=== PATIENT | female | born 2000 | race African-American/Black ===

== ENCOUNTER 2022-03-02 21:42 | Emergency (ER) | payer SELFPAY ==
[2022-03-02 21:47] VITALS: BP 139/77; PULSE 101; TEMP 100.7; BMI 26.4
[2022-03-02] MEDS ORDERED: AMOX TR/POT CLAV 875MG/125MG TABLETS (FP) PO ONE (23:18)
[2022-03-02] MEDS ORDERED: DEXAMETHASONE 4 MG TABLET (FP) PO ONE (23:20)
[2022-03-02] MEDS ORDERED: AMOX TR/POT CLAV 875MG/125MG TABLETS (FP) ONE (23:58)
[2022-03-02] MEDS ORDERED: DEXAMETHASONE 4 MG TABLET (FP) ONE (23:59)
== END 2022-03-03 00:27 | disposition home or self-care (01) ==
LOC: JERFT 21:42 → JER 21:42
DX: J03.90 Acute tonsillitis, unspecified (principal)
CPT/HCPCS: 99283-25

== ENCOUNTER 2023-06-21 22:58 | Emergency (ER) | payer SELFPAY ==
[2023-06-21 23:11] VITALS: RESP 18; BMI 37.8
[2023-06-22 01:54] LABS: EPI CELLS >36 /uL (0-25.1); HYALINE CASTS 4 /uL (0-3.1); URINE APPEARANCE TURBID; URINE BACTERIA >9,000 /uL (0-1359); URINE BILIRUBIN NEGATIVE (NEGATIVE); URINE COLOR YELLOW; URINE GLUCOSE (UA) NEGATIVE (NEGATIVE); URINE KETONE 4+ (NEGATIVE); URINE LEUK ESTERASE 3+ (NEGATIVE); URINE NITRITE POSITIVE (NEGATIVE); URINE PROTEIN 2+ (NEGATIVE); URINE UROBILINOGEN 0.2 mg/dL (0.2-1.0); URINE WBC 9645 /uL (0-25.8)
[2023-06-22] MEDS ORDERED: CEPHALEXIN MONOHYDRATE 500 MG CAPSULE (UD) PO ONE (02:13)
[2023-06-22] MEDS ORDERED: LACTATED RINGERS SOLUTION 500 ML IV ONE (03:30)
[2023-06-22 03:43] VITALS: BP 119/73; PULSE 92; TEMP 98.2
[2023-06-22] MEDS ORDERED: CEFTRIAXONE 1 GM in DEXTROSE 5%-WATER - 50 ML IVPB ONE (04:48)
[2023-06-22 12:05] LABS: URINE RBC 276.5 /uL (0-23.9)
== END 2023-06-22 05:50 | disposition home or self-care (01) ==
LOC: JER 22:58
PROC: 3E033GC Introduction of Other Therapeutic Substance into Peripheral Vein, Percutaneous Approach (ICD-10-PCS; principal; 2023-06-21)
DX: O23.42 Unspecified infection of urinary tract in pregnancy, second trimester (principal); Z3A.27 27 weeks gestation of pregnancy
CPT/HCPCS: 36415; 76817-TC; 81003; 84702; 87086; 87186; 99284-25

== ENCOUNTER 2023-09-13 06:22 | Inpatient (IN) | payer SELFPAY ==
[2023-09-13] MEDS ORDERED: AMPICILLIN - 2 GM in SODIUM CHLORIDE 100 ML IVPB ONE (07:30)
[2023-09-13] MEDS ORDERED: AMPICILLIN SODIUM 2 GM VIAL ONE (07:33)
[2023-09-13] MEDS: ELECTROLYTE-148 SOLN 1,000 ML IV SCH ×3 (08:03→22:50)
[2023-09-13 08:41] LABS: BASO % 0.2 % (0-2.0); EOS % 1.2 % (0-4.5); HEMATOCRIT 35.3 % (32.4-45.2); HEMOGLOBIN 11.2 GM/dL (10.7-15.3); LYMPH % 25.5 % (8-40); MCH 24.2 pg (25.7-33.7); MCHC 31.6 g/dl (32.0-36.0); MEAN CELL VOLUME 76.7 fl (80-96); MEAN PLT VOLUME 8.2 fl (7.5-11.1); NEUT % 63.1 % (42.8-82.8); PLATELET COUNT 300 10^3/uL (134-434); RBC 4.61 M/mm3 (3.60-5.2); RDW 16.7 % (11.6-15.6); WHITE BLOOD COUNT 6.4 K/mm3 (4.0-10.0)
[2023-09-13 08:54] VITALS: BMI 39.0
[2023-09-13 09:12] LABS: ACTIVATED PTT 32.6 SECONDS (25.2-36.5); INR 1.01 (0.83-1.09); PROTHROMBIN TIME (PATIENT) 11.7 SEC (9.7-13.0)
[2023-09-13 09:16] LABS: COCAINE, UR NEGATIVE (NEGATIVE); METHADONE, UR NEGATIVE (NEGATIVE); OPIATES, URI NEGATIVE (NEGATIVE); PHENCYCLIDINE,URINE NEGATIVE (NEGATIVE); URINE AMPHETAMINES NEGATIVE (NEGATIVE); URINE BARBITURATES NEGATIVE (NEGATIVE); URINE BENZODIAZEPINES NEGATIVE (NEGATIVE)
[2023-09-13 09:17] LABS: POTASSIUM 4.3 mmol/L (3.5-5.1)
[2023-09-13 09:19] LABS: CALCIUM 8.7 mg/dL (8.5-10.1)
[2023-09-13 09:20] LABS: ALBUMIN 2.7 g/dl (3.4-5.0); BLOOD UREA NITROGEN 7.7 mg/dL (7-18)
[2023-09-13 09:23] LABS: CREATININE 0.6 mg/dL (0.55-1.3)
[2023-09-13 09:24] LABS: BILIRUBIN,TOTAL 0.3 mg/dL (0.2-1); TOT PROT 7.2 g/dl (6.4-8.2)
[2023-09-13 09:31] LABS: EPI CELLS 15 /uL (0-25.1); HYALINE CASTS 11 /uL (0-3.1); URINE APPEARANCE CLEAR; URINE BACTERIA 172 /uL (0-1359); URINE BILIRUBIN NEGATIVE (NEGATIVE); URINE COLOR YELLOW; URINE GLUCOSE (UA) NEGATIVE (NEGATIVE); URINE KETONE TRACE (NEGATIVE); URINE LEUK ESTERASE 2+ (NEGATIVE); URINE NITRITE NEGATIVE (NEGATIVE); URINE PROTEIN NEGATIVE (NEGATIVE); URINE RBC 53 /uL (0-23.9); URINE UROBILINOGEN 0.2 mg/dL (0.2-1.0); URINE WBC 247 /uL (0-25.8)
[2023-09-13] MEDS ORDERED: AMPICILLIN SODIUM 1 GM VIAL ONE ×3 (11:47→20:17)
[2023-09-13 11:50] LABS: SYPHILIS W/ RPR CONF NON-REACTIVE (NONREACTIVE)
[2023-09-13] MEDS: AMPICILLIN - 1 GM in SODIUM CHLORIDE 100 ML IVPB SCH ×3 (12:03→20:20)
[2023-09-13] MEDS ORDERED: FENTANYL/BUPIVACAINE/NS/PF - PCEA - 50 ML DISP.SYRIN EP ONE ×3 (12:12→22:08)
[2023-09-13 12:19] LABS: HIV INTERPRETATION NEGATIVE (NEGATIVE)
[2023-09-13] MEDS: FENTANYL/BUPIVACAINE/NS/PF - PCEA - 50 ML DISP.SYRIN EP SCH ×3 (12:30→22:15)
[2023-09-13] MEDS ORDERED: NALOXONE HCL 0.4 MG/ML VIAL IVPUSH PRN (13:03)
[2023-09-14] MEDS ORDERED: AMPICILLIN SODIUM 1 GM VIAL ONE ×2 (00:11→04:05)
[2023-09-14] MEDS: AMPICILLIN - 1 GM in SODIUM CHLORIDE 100 ML IVPB SCH ×3 (00:20→09:02)
[2023-09-14] MEDS ORDERED: FENTANYL/BUPIVACAINE/NS/PF - PCEA - 50 ML DISP.SYRIN EP ONE ×2 (02:03→06:39)
[2023-09-14] MEDS ORDERED: ONDANSETRON 4 MG/2 ML VIAL IVPB ONE (03:10)
[2023-09-14] MEDS ORDERED: ONDANSETRON 4 MG/2 ML VIAL ONE (03:13)
[2023-09-14] MEDS ORDERED: LIDOCAINE HCL 1% PRESERVATIVE FREE - 30ML VIAL ONE (04:57)
[2023-09-14] MEDS ORDERED: OXYTOCIN 20 UNITS in 0.9% NS 20 UNIT/1,000 ML INFUS.BAG IV ONE (04:57)
[2023-09-14] MEDS: FENTANYL/BUPIVACAINE/NS/PF - PCEA - 50 ML DISP.SYRIN EP SCH (06:40)
[2023-09-14] MEDS ORDERED: OXYTOCIN 30 UNITS in 0.9% NS 30 UNIT/500 ML INFUS.BAG IVPB ONE (07:19)
[2023-09-14] MEDS ORDERED: WITCH HAZEL 50% (TUCKS) 40 PAD/JAR PAD TP PRN (08:00)
[2023-09-14] MEDS ORDERED: oxyCODONE HCL 5 MG TABLET PO PRN (08:00)
[2023-09-14] MEDS ORDERED: ACETAMINOPHEN 325 MG TABLET (FP) PO PRN (08:00)
[2023-09-14] MEDS ORDERED: BENZOCAINE 20% 57 GM BOTTLE TP PRN (08:00)
[2023-09-14] MEDS ORDERED: BISACODYL 10 MG SUPP.RECT RC PRN (08:00)
[2023-09-14] MEDS ORDERED: BENZOCAINE 28 GM HEMORRHOIDAL OINTMENT TP PRN (08:00)
[2023-09-14] MEDS ORDERED: OXYTOCIN 20 UNITS in 0.9% NS 20 UNIT/1,000 ML INFUS.BAG IV SCH (08:00)
[2023-09-14] MEDS ORDERED: METHYLERGONOVINE MALEATE 0.2 MG/1 ML AMP IM PRN (08:00)
[2023-09-14 08:46] LABS: CORD HCO3 23.9 mmHg (20-29); CORD PCO2 59.1 mmHg (30-78); CORD pH 7.225 (7.14-7.44)
[2023-09-14 08:50] LABS: CORD BASE EXCESS -5.1 mmol/L (0-2); CORD HCO3 21.7 mmHg (20-29); CORD PCO2 46.7 mmHg (30-78); CORD pH 7.286 (7.14-7.44)
[2023-09-14] MEDS: ELECTROLYTE-148 SOLN 1,000 ML IV SCH (10:53)
[2023-09-14] MEDS: IBUPROFEN 600 MG TABLET (FP) PO PRN (20:38)
[2023-09-15 08:33] LABS: BASO % 0.2 % (0-2.0); EOS % 0.3 % (0-4.5); HEMATOCRIT 30.5 % (32.4-45.2); HEMOGLOBIN 9.5 GM/dL (10.7-15.3); LYMPH % 17.3 % (8-40); MEAN CELL VOLUME 77.3 fl (80-96); MEAN PLT VOLUME 8.3 fl (7.5-11.1); MONO % 9.2 % (3.8-10.2); PLATELET COUNT 301 10^3/uL (134-434); RBC 3.95 M/mm3 (3.60-5.2); RDW 16.6 % (11.6-15.6); WHITE BLOOD COUNT 14.6 K/mm3 (4.0-10.0)
[2023-09-15 08:46] VITALS: RESP 16
[2023-09-15] MEDS ORDERED: DIPHTH,PERTUSS(ACELL),TET 0.5 ML DISP.SYRIN IM ONE (10:00)
[2023-09-15] MEDS: IBUPROFEN 600 MG TABLET (FP) PO PRN ×2 (12:35→22:35)
[2023-09-15] MEDS ORDERED: SENNOSIDES/DOCUSATE COMBO (SENNA PLUS) TABLET (UD) PO PRN (22:00)
[2023-09-16 08:18] VITALS: BP 119/68; PULSE 64; TEMP 98.7
[2023-09-16] MEDS: IBUPROFEN 600 MG TABLET (FP) PO PRN (15:39)
== END 2023-09-16 17:23 | disposition home or self-care (01) | DRG 560 ==
LOC: JDEL 06:22 → JLDR 06:45 → J3W 09-14 10:06
PROVIDERS: ADMIT Obstetrics & Gynecology; ATTEND Obstetrics & Gynecology
PROC: 10E0XZZ Delivery of Products of Conception, External Approach (ICD-10-PCS; principal; 2023-09-14)
PROC: 0W8NXZZ Division of Female Perineum, External Approach (ICD-10-PCS; 2023-09-14)
DX: O80 Encounter for full-term uncomplicated delivery (principal); Z3A.39 39 weeks gestation of pregnancy; Z37.0 Single live birth
CPT/HCPCS: 36415; 36600; 80053; 80307; 81003; 82803; 85025; 85610; 85730; 86780; 86850; 86900; 86901; 87340; 87389; 90715